=== PATIENT | female | born 1980 | race Caucasian/White ===

== ENCOUNTER 2024-03-05 00:46 | Day surgery (SDC) | payer OTHER, SELFPAY ==
--- NOTE | 2024-03-02 16:04 | SUR.PREOP ---
Addendum entered by Tri Olguin RN 03/02/24 16:26: INSTRUCTED TO BEGIN HOLDING CONCAVE TODAY (03/02/24) ALSO. Original Note: Report to the Outpatient Waiting Room, entrance under the [facility] located off [facility], at time 0700 on date 03/05/24. Planned Procedure Time: 0900.? Time changes happen often and if your time is changed the preop area will call you the afternoon before. - You and your visitor will be asked to self-screen and do not enter if you have any COVID symptoms. Please call surgeon if you need to reschedule. - A mask is optional within the hospital at this time. Patients may have clear liquids (water, carbonated beverages, clear teas, apple juice) until 3 hours prior to surgery with a maximum of 20 ounces. - No food from midnight until time of surgery and no smoking - Infants may have breast milk until 4 hours before surgery, infant formula 6 hours prior to surgery. - Children will be allowed to drink immediately following surgery.? If applicable, please bring a bottle or sippy cup to assist with drinking. Juice, water, soda, and popsicles are readily available.? For infants on formula, please bring formula the day of surgery.? Pacifiers are allowed. Take only the following medications with a SIP of water on the morning of surgery: LEVOTHYROXINE DO NOT STOP ANY OF YOUR OTHER PRESCRIPTION MEDICATIONS PRIOR TO SURGERY EXCEPT THE FOLLOWING Medications to discontinue per physician VITAMINS & SUPPLEMENTS Date to take last dose 03/02/24 Please no make-up, nail swedish, hairspray, perfume, deodorant, or body powder the day of surgery.? No jewelry (including any body piercings) or valuables the day of surgery, leave them at home.? Please take a shower or bath the night before, or the morning of, surgery with an antibacterial soap.? Wear comfortable, loose fitting clothing.? Children are encouraged to wear pajamas. - Jewelry must be removed prior to entering the operating room.? Rings and piercings that are not removed may be cut off. - The hospital will not accept responsibility for valuables.? - Please leave all valuables, including medications, at home the day of surgery. If you are going home after surgery, a licensed route cdl driver must drive you home.? - NO public transportation without another adult if you receive anesthesia. - We recommend that an adult stay with you for 24 hours following discharge. - We also recommend that you do not drive, make important decision, drink alcoholic beverages, or take any drugs that were not prescribed by your health care provider for at least 24 hours after your discharge time. For Pediatric surgeries, we recommend two adults accompany the child home. Follow any additional instructions given to you from your surgeon. Telephone instructions given to DONYA SYKES and asked if any additional questions and then verbalized understanding. Patient advised to call surgeon office or pre surgery nurse liaison [phone] if any additional questions.
[2024-03-02 16:14] VITALS: BMI 35.6
[2024-03-05] VITALS (10 sets, daily range): BP systolic 92–113; BP diastolic 54–79; PULSE 72–96; RESP 12–20; TEMP 36.2–36.7; O2SAT 96–100
--- NOTE | 2024-03-05 06:04 | ECG_ITS ---
Test Date: 2024-03-05 08:21:38 Measurements Intervals [place] Rate: P: LA: QRS: QRSD: T: QT: QTc: Interpretive Statements SINUS RHYTHM NORMAL ECG Electronically Signed On 03-05-2024 10:05:59 CDT by Emil Nguyen D.O.
--- NOTE | 2024-03-05 07:23 | P.HP_ITS ---
H&P: HPI History of Present Illness Date/Time: 03/05/24 07:23 Chief Complaint: abnormal uterine bleeding, desires sterilization Narrative: Patient is a 43 year old female who presents for laparoscopic bilateral sa lpingectomy, endometrial ablation and Nexplanon removal indicated for abnormal uterine bleeding. She was previously amenorrheic on Nexplanon however has had irregular bleeding since 05/2023. She declined expectant management after removal of Nexplanon. She also desires permanent sterilization. Risks and benefits of procedures discussed with patient who voices understanding and would like to proceed. Review of Systems Review of Systems: All systems reviewed & are unremarkable except as noted in HPI and below PMFSH Social History Social History Smoking status: Never smoker Living arrangements: with family Spiritual care concerns: No Meds Home Medications and Allergies Home Medications Medication Instructions Recorded Confirmed Type citalopram 20 mg tablet 20 mg PO HS 03/02/24 03/02/24 History levothyroxine 112 mcg tablet 112 mcg PO DAILY 03/02/24 03/02/24 History losartan 25 mg tablet 25 mg PO HS 03/02/24 03/02/24 History naltrexone 8 mg-bupropion 90 mg 2 tablet PO BID 03/02/24 03/02/24 History tablet,extended release (Contrave) rizatriptan 10 mg disintegrating 10 mg translingual DAILY 03/02/24 03/02/24 History tablet Allergies Allergy/AdvReac Type Severity Reaction Status Date / Time codeine Allergy Mild RASH Verified 03/02/24 15:51 erythromycin base Allergy Mild RASH Verified 03/02/24 15:51 Exam Const: General: comfortable and no acute distress HENMT: Mouth: Yes moist mucous membranes Resp: Effort & Inspection: normal respiratory effort Cardio: Rate: regular rate Skin: General skin exam: normal color Extrem: General: normal to inspection Psych: Mental Status: mental status grossly normal Assessment and Plan Assessment and plan (1) Abnormal uterine bleeding: Code(s): N93.9 - Abnormal uterine and vaginal bleeding, unspecified Status: Acute Assessment and Plan: - patient reports irregular periods since 05/2023 - ddx: perimenopause vs Nexplanon - EMB normal - patient desires surgical management with endometrial ablation. Risks, benefits, and alternatives discussed with patient - will proceed with endometrial ablation - will remove nexplanon at time of procedure as well (2) Admission for sterilization: Code(s): Z30.2 - Encounter for sterilization Status: Acute Assessment and Plan: - patient desires permanent sterilization - risks, benefits, and alternatives of bilateral salpingectomy discussed with patient including permanence of procedure - patient voices understanding - will proceed with bilateral salpingectomy
--- NOTE | 2024-03-05 07:28 | WPDHPUPDATE1 ---
History and Physical Update Update Date/Time: 03/05/24 07:28 History and Physical has been reviewed, including an updated exam of the patient. There are NO changes in the patient's condition. Risks, benefits, and alternatives have been discussed and questions answered. Patient agrees to proceed with procedure.
[2024-03-05] MEDS: ACETAMINOPHEN 500 MG TABLET 1000 MG PO (07:50)
[2024-03-05] MEDS: LACTATED RINGERS 1,000 ML 30 ML IV CONT ×2 (08:05→09:38)
[2024-03-05] MEDS: KETOROLAC 15 MG/ML VIAL (*BKC) IV PUSH (08:10)
--- NOTE | 2024-03-05 08:11 | W.PM.PROC2 ---
Procedure Note - Detailed Date of Procedure 03/05/24 Pre-op Diagnosis Abnormal Uterine Bleeding, Desires Sterilization Post-op Diagnosis Same Procedure Performed laparoscopic bilateral salpingectomy, endometrial ablation, and Nexplanon removal Surgeon Isaiah Couch MD Anesthesia General Description of Procedure With IV fluids infusing, the patient was taken to the operating room. The patient was placed in supine position and SCDs were placed on the lower extremities. General anesthesia with endotracheal intubation was given. A time-out took place. The patient was placed in dorsal lithotomy position using Luis stirrups and she was prepped and draped in the usual sterile fashion. The bladder was drained of clear urine using a red rubber catheter. A sterile speculum was placed vaginally, the anterior lip of the cervix was grasped with a single-tooth tenaculum and the acorn uterine manipulator was placed without difficulty. The speculum was removed. The surgeon's gloves were changed and attention was turned to the abdomen. A 5 mm incision was made in the umbilicus. Under direct visualization with the scope, the umbilical port was inserted without difficulty. Another two trocars were placed under direct visualization in the left upper and lower quadrants. The patient was placed in Trendelenburg and inspection of the pelvis noted the above findings. Appropriate pictures were taken. Using the LigaSure devise, a left salpingectomy was performed in the usual fashion. Care was taken to avoid the IP ligament. The same procedure was performed on the right. The instruments were all removed from the abdomen and the CO2 gas was allowed to escape. A bivalved speculum was then inserted into the patient's vagina.?The acorn manipulator was removed. A paracervical block was injected. The uterus was sounded to 8 cm.? At this point, the? hysteroscope was then inserted into the uterine cavity. Saline was used as the distension medium. The above findings were noted. Both tubal ostia were visualized and pictures were taken.? The hysteroscope was then removed. The cervical length was then measured using the dilator and measured 8 cm.? The cervix was further dilated to accommodate the Patricia device. The Patricia device was then opened and the uterine cavity length set at 4 cm.? The device was deployed, the mesh examined, and then reinserted into the sheath.? The device was then inserted into the uterine cavity, deployed, and cavity width measurement was appropriate.? The cavity assessment was performed and was within normal limits.? The device was then activated.? Once the ablation was completed the device was removed and the hysteroscope reinserted.? The burn was noted to be equal and adequate.? The hysteroscope and tenaculum were removed.? The anterior lip of the cervix was hemostatic, the bivalve speculum was then removed.? The three skin incisions were reapproximated with 4-0 Vicryl in a subcuticular manner, followed by skin glue. Attention was then turned to the left arm. The nexplanon device was palpated and the area around it prepped with betadine. Using an 11 blade, a 5mm incision was made perpendicular to the device. The device was easily removed intact with hemostats and sent to pathology. Hemostasis was assured. Steri strips were placed over the incision. The patient tolerated the procedure well.? Sponge, lap, needle, and instrument counts were correct X3.? The patient was taken out of the dorsal lithotomy position and awakened from anesthesia and taken to the recovery room in stable condition. Estimated Blood Loss 10 Pathology Yes Complications No immediate complications Condition Stable Disposition Same day
--- NOTE | 2024-03-05 08:20 | P.PNAN_ITS ---
Anes - Initial Pre Proc Eval Procedure: Operation Date: 03/05/24 09:00 Proposed Procedures p Laparoscopic Bilateral Tubal Ligation, Removal of Nexplanon - Isaiah Couch MD s Hysteroscopy with Patricia Endometrial Ablation - Isaiah Couch MD Date/Time: 03/05/24 08:20 Surgeon: Isaiah Couch MD Pre Op Diagnosis: Abnormal Uterine Bleeding, Desires Sterilization Patient Data Age: 43 Gender: F Height: 1.57 m Weight: 88.8 kg Last Vital Signs Temp 98.0 F 03/05/24 07:23 Pulse 72 03/05/24 07:23 Resp 18 03/05/24 07:23 BP 113/79 03/05/24 07:23 Pulse Ox 100 03/05/24 07:23 O2 Del Method Room Air 03/05/24 07:23 Allergies Allergy/AdvReac Type Severity Reaction Status Date / Time codeine Allergy Mild RASH Verified 03/05/24 08:11 erythromycin base Allergy Mild RASH Verified 03/05/24 08:11 Home Medications Medication Instructions Recorded Confirmed Type citalopram 20 mg tablet 20 mg PO HS 03/02/24 03/05/24 History levothyroxine 112 mcg tablet 112 mcg PO DAILY 03/02/24 03/05/24 History losartan 25 mg tablet 25 mg PO HS 03/02/24 03/05/24 History naltrexone 8 mg-bupropion 90 mg 2 tablet PO BID 03/02/24 03/05/24 History tablet,extended release (Contrave) rizatriptan 10 mg disintegrating 10 mg translingual DAILY 03/02/24 03/05/24 History tablet Patient hx anesthesia problems: none Family hx anesthesia problems: none Results Review: All pre-operative results and documents have been reviewed as part of the pre- operative evaluation. [facility] Social History Social History Smoking status: Never smoker Living arrangements: with family Spiritual care concerns: No Anes - Eval Final PreProcedure Day of Procedure 03/05/24 08:20 Patient weight: obese Heart: regular rate and rhythm Lungs: clear to auscultation Airway: Mallampati scale class II Neurological: alert and oriented Last oral intake: >/= 8 hours ASA classification: III Emergent: no Anesthetic plan: proceed Anesthesia type and monitoring: general ETT and standard monitoring Results Review: All pre-operative results and documents have been reviewed as part of the pre- operative evaluation. Informed Consent: The patient's anesthetic plan and its attendant risks and benefits were discussed with the patient/family/POA. Questions were solicited and answers provided to the satisfaction of the patient/family/POA.
[2024-03-05] MEDS: SCOPOLAMINE 1 MG PATCH 1 PATCH TRANSDERM (08:30)
[2024-03-05] MEDS: LIDO 1%/EPINEPHRINE 1:100,000 50 ML VIAL 10 ML INFILTRATE (09:31)
== END 2024-03-05 11:41 | disposition home or self-care (01) ==
PROVIDERS: PCP Family Medicine; Visit Provider Obstetrics & Gynecology
PROC: (CPT 58671; principal; 2024-03-05 09:00)
PROC: 0U5B8ZZ Destruction of Endometrium, Via Natural or Artificial Opening Endoscopic (ICD-10-PCS; CPT 58563; 2024-03-05 09:00)
DX: N93.9 Abnormal uterine and vaginal bleeding, unspecified (principal); Z30.2 Encounter for sterilization; Z30.46 Encounter for surveillance of implantable subdermal contraceptive; E66.9 Obesity, unspecified; Z68.35 Body mass index [BMI] 35.0-35.9, adult
CPT/HCPCS: 58661; 58563; 11983; 88300; 88302; 93005; A9270; J0330; J1100; J1885; J2250; J2405; J2704; J3010; J7120

== ENCOUNTER 2025-05-01 13:18 | Emergency (ER) | payer BC, OTHER, SELFPAY ==
--- NOTE | ~2025-05-01 | XR_ITS ---
Examination: XR foot RT min 3V Clinical History: fall 2 days ago. right dorsal foot pain Comparison: None Technique: 4 views right foot Findings/impression: 1. No fracture or dislocation right foot. Reviewed, dictated and finalized at location [facility] [employer]
--- NOTE | 2025-05-01 13:19 | ED.LOWEXIN ---
HPI - Extremity Injury (Lower) General Chief Complaint: Extremity Injury, Lower Stated Complaint: INJURED R FOOT Time Seen by Provider: 05/01/25 13:19 Source: patient Mode of arrival: ambulatory Limitations: no limitations History of Present Illness HPI Narrative: Tiffany is a 44-year-old female patient presenting to the clinic today with complaints of right dorsal foot pain. She reports she tripped and injury to the right foot on Friday. Has not taken any Tylenol or ibuprofen for the pain. She has not iced her foot. Rates pain 12/07 currently. Related Data Home Medications ?Medication ?Instructions ?Recorded ?Confirmed ?Last Taken ?Type citalopram 20 mg tablet 20 mg PO HS 03/02/24 05/01/25 Unknown History levothyroxine 112 mcg tablet 112 mcg PO DAILY 03/02/24 05/01/25 Unknown History losartan 25 mg tablet 25 mg PO HS 03/02/24 05/01/25 Unknown History naltrexone 8 mg-bupropion 90 mg 2 tablet PO BID 03/02/24 03/05/24 Unknown History tablet,extended release (Contrave) rizatriptan 10 mg disintegrating 10 mg translingual DAILY 03/02/24 03/05/24 Unknown History tablet Allergies Allergy/AdvReac Type Severity Reaction Status Date / Time codeine Allergy Mild RASH Verified 05/01/25 13:29 erythromycin base Allergy Mild RASH Verified 05/01/25 13:29 Review of Systems Review of Systems: Pertinent positives per HPI. Patient denies any fever, chills, rash, headache, visual changes, dizziness, cough, runny nose, sore throat, shortness of breath, chest pain, palpitations, nausea, vomiting, diarrhea, constipation, abdominal pain, or any urinary issues. PMFSH Social History Social History Smoking status: Never smoker Living arrangements: with family Spiritual care concerns: No Comments At the time of my signature, I reviewed and agree with the nursing past medical, surgical, social, and family history. There is no relevant family history pertinent to the patient complaint. Exam Narrative: General: Well-developed, well nourished, in no apparent distress Head: Normocephalic, atraumatic. Cardio: Regular rate and rhythm, s1 and s2 normal, no murmur appreciated. Resp: Clear to auscultation bilaterally, no rhonchi, rales, wheezing or rubs. Musculoskeletal: No deformity, tender to palpation over the dorsal foot, grossly normal range of motion, muscle strength strong and equal, peripheral pulse strong, no edema, no cyanosis, normal gait and station Course Course Emergency Course: Portions of this record may have been created with voice recognition software. Level of Care: Express Care Visit Vital Signs Vital signs: Vital signs reviewed MDM - Extremity Injury (Lower) MDM Narrative Medical decision making narrative: At the time of visit patient is resting comfortably on the exam table. Patient appears to be nontoxic. Complaints of right dorsal foot pain. She reports she tripped/fell and injury to the right foot on Friday. Has not taken any Tylenol or ibuprofen for the pain. She has not iced her foot. Rates pain 6/10 currently. X-ray of the right foot was ordered. Diagnostics: X-ray of the right foot was performed and is negative for any fracture or malalignment. Plan: I suspect patient has right foot sprain. Mauricio wrap was given to the patient. Ice pack was given to the patient. Supportive measures were discussed with the patient and they voiced understanding discharge instructions and agrees to treatment plan. Return precautions reviewed Differential Diagnosis Differential diagnosis: Likely fracture of toe and other (Foot fracture, foot sprain, contusion, soft tissue injury) Discharge Plan Discharge Clinical Impression: Foot sprain Qualifiers: Encounter type: initial encounter Laterality: right Qualified Code(s): S93.601A - Unspecified sprain of right foot, initial encounter Patient Disposition: Home Condition: Stable Instructions: Antibiotic Form, Foot Sprain (ED) Additional Instructions: X-rays negative for any sign of fracture or malalignment the right foot. Rest, ice, elevate, and wear mauricio wrap as directed Tylenol/motrin for pain as discussed. Gradually bear weight No running or sports until healed. Follow up with your PCP if symptoms persist more than 1 week. Patient Language: Macedonian Prescriptions: No Action citalopram 20 mg tablet 20 mg PO HS losartan 25 mg tablet 25 mg PO HS levothyroxine 112 mcg tablet 112 mcg PO DAILY rizatriptan 10 mg tablet,disintegrating 10 mg translingual DAILY Contrave 8-90 mg Tablet Extended Release 2 tablet PO BID ibuprofen 600 mg tablet 600 mg PO Q6H PRN (Reason: pain) Qty: 30 0RF oxycodone 5 mg tablet 5 mg PO Q6H PRN (Reason: pain) Qty: 10 0RF Follow-up/Referrals: Sai,Tiburcio Armstrong MD [Primary Care Provider, Unknown] Time of Disposition: 13:40 Quality NIHSS Nursing Documentation ED NIHSS nursing documentation: reviewed/agree
== END 2025-05-01 13:53 | disposition home or self-care (01) ==
PROVIDERS: Emergency Provider Nurse Practitioner Family; PCP Family Medicine
DX: S93.601A Unspecified sprain of right foot, initial encounter (principal); X58.XXXA Exposure to other specified factors, initial encounter; I10 Essential (primary) hypertension; F32.A Depression, unspecified
CPT/HCPCS: 73630; 99213; G0463

== ENCOUNTER 2025-06-09 08:50 | Outpatient (CLI) | payer BC, OTHER, SELFPAY ==
--- NOTE | ~2025-06-09 | MMUS_ITS ---
EXAMINATION: US breast LT limited, MM diagnostic liseth BI w yamilet HISTORY: Follow-up TECHNIQUE: Craniocaudal and mediolateral oblique 3-D tomosynthesis images were obtained and synthetic 2-D images were generated. CAD analysis was submitted and interpreted. Grayscale sonography over the area(s) of interest with color Doppler if there is a finding. COMPARISON: Outside studies from July. BREAST PARENCHYMAL COMPOSITION: Dense: The breasts are heterogeneously dense MAMMOGRAM FINDINGS: No suspicious masses are seen. There are no suspicious calcifications. No unexplained architectural distortion is seen. There are no skin or nipple abnormalities identified. There is no adenopathy seen on the images submitted. ULTRASOUND FINDINGS: No cystic or solid masses are seen in the area(s) of concern. IMPRESSION: No mammographic evidence to suggest malignancy is seen. The patient may return to screening mammography as per ACR guidelines. BI-RADS 2 - Benign. EXAMINATION: US breast LT limited, MM diagnostic liseth BI w yamilet HISTORY: Follow-up TECHNIQUE: Craniocaudal and mediolateral oblique 3-D tomosynthesis images were obtained and synthetic 2-D images were generated. CAD analysis was submitted and interpreted. Grayscale sonography over the area(s) of interest with color Doppler if there is a finding. COMPARISON: Outside studies from July. Screening study from 2022. BREAST PARENCHYMAL COMPOSITION: Dense: The breasts are heterogeneously dense MAMMOGRAM FINDINGS: No suspicious masses are seen. There are no suspicious calcifications. No unexplained architectural distortion is seen. There are no skin or nipple abnormalities identified. There is no adenopathy seen on the images submitted. ULTRASOUND FINDINGS: Sonography through the 12:00 position again demonstrates what is probably a complex cyst. It is heterogeneous with cystic spaces and hypoechoic portions. The maximum dimension is 3 mm. It has significantly increased in size. This is consistent with a benign finding. Sonography through the left axilla demonstrates only a benign-appearing lymph node. IMPRESSION: No mammographic or sonographic evidence to suggest malignancy is seen. The patient may return to screening mammography as per ACR guidelines. BI-RADS 2 - Benign. Reviewed, dictated and finalized at location C. T SHIFT IMPRESSION: No mammographic evidence to suggest malignancy is seen. The patient may return to screening mammography as per ACR guidelines. BI-RADS 2 - Benign. EXAMINATION: US breast LT limited, MM diagnostic liseth BI w yamilet HISTORY: Follow-up TECHNIQUE: Craniocaudal and mediolateral oblique 3-D tomosynthesis images were obtained and synthetic 2-D images were generated. CAD analysis was submitted an d interpreted. Grayscale sonography over the area(s) of interest with color Doppler if there i s a finding. COMPARISON: Outside studies from July. Screening study from 2022. BREAST PARENCHYMAL COMPOSITION: Dense: The breasts are heterogeneously dense MAMMOGRAM FINDINGS: No suspicious masses are seen. There are no suspicious calcifications. No unexplained architectural distortion is seen. There are no skin or nipple abnormalities identified. There is no adenopathy seen on the images submitted. ULTRASOUND FINDINGS: Sonography through the 12:00 position again demonstrates what is probably a com plex cyst. It is heterogeneous with cystic spaces and hypoechoic portions. The maximum dimension is 3 mm. It has significantly increased in size. This is cons istent with a benign finding. Sonography through the left axilla demonstrates only a benign-appearing lymph n ode. IMPRESSION: No mammographic or sonographic evidence to suggest malignancy is seen. The samm ent may return to screening mammography as per ACR guidelines. BI-RADS 2 - Benign. IMPRESSION: No mammographic evidence to suggest malignancy is seen. The patient may return to screening mammography as per ACR guidelines. BI-RADS 2 - Benign. EXAMINATION: US breast LT limited, MM diagnostic liseth BI w yamilet HISTORY: Follow-up TECHNIQUE: Craniocaudal and mediolateral oblique 3-D tomosynthesis images were obtained and synthetic 2-D images were generated. CAD analysis was submitted an d interpreted. Grayscale sonography over the area(s) of interest with color Doppler if there i s a finding. COMPARISON: Outside studies from July. Screening study from 2022. BREAST PARENCHYMAL COMPOSITION: Dense: The breasts are heterogeneously dense MAMMOGRAM FINDINGS: No suspicious masses are seen. There are no suspicious calcifications. No unexplained architectural distortion is seen. There are no skin or nipple abnormalities identified. There is no adenopathy seen on the images submitted. ULTRASOUND FINDINGS: Sonography through the 12:00 position again demonstrates what is probably a com plex cyst. It is heterogeneous with cystic spaces and hypoechoic portions. The maximum dimension is 3 mm. It has significantly increased in size. This is cons istent with a benign finding. Sonography through the left axilla demonstrates only a benign-appearing lymph n ode.
== END 2025-06-09 08:51 | disposition home or self-care (01) ==
PROVIDERS: PCP Family Medicine; Visit Provider Family Medicine
DX: R92.8 Other abnormal and inconclusive findings on diagnostic imaging of breast (principal)
CPT/HCPCS: 76642; 77062; 77066; G0279